=== PATIENT | male | born 1980 | race Caucasian/White ===

== ENCOUNTER 2017-03-25 13:20 | Emergency (ER) | payer OTHER ==
[~2017-03-25] VITALS: Ht 182.9 cm; Wt 140.9 kg
[~2017-03-25 13:20] MED LIST: IBUP-232 PO
[2017-03-25 13:26] VITALS: BP 132/93; PULSE 82; RESP 20; TEMP 98.3; O2SAT 96
[2017-03-25] MEDS ORDERED: ROBA750T PO (14:34)
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
[2017-03-25] MEDS ORDERED: KETOROLAC TROMETHAMINE 60 MG/2 ML (IM) VIAL IM ONE (15:15)
== END 2017-03-25 15:13 | disposition home or self-care (01) ==
LOC: NEPK 13:20
DX: S16.1XXA Strain of muscle, fascia and tendon at neck level, initial encounter (principal); S39.012A Strain of muscle, fascia and tendon of lower back, initial encounter; V49.50XA Passenger injured in collision with unspecified motor vehicles in traffic accident, initial encounter; Z88.0 Allergy status to penicillin
CPT/HCPCS: 96372; 99284; J1885

== ENCOUNTER 2017-08-09 19:18 | Emergency (ER) | payer MEDICAID, OTHER ==
[~2017-08-09 19:18] MED LIST changes: -IBUP-232 PO; +ROBA750T PO
[2017-08-09 19:35] VITALS: BP 152/84; PULSE 82; RESP 16; TEMP 98.6; O2SAT 97
[2017-08-09] MEDS ORDERED: KETOROLAC TROMETHAMINE 60 MG/2 ML (IM) VIAL IM ONE (22:30)
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
[2017-08-09] MEDS ORDERED: IBUP1TAB7 PO (22:33)
[2017-08-09] MEDS ORDERED: BACL10TA PO (22:33)
--- NOTE | 2017-08-09 22:51 | RADRPT ---
EXAM DATE: 08/09/2017 10:48 PM EDT AGE/SEX: 37 years / Male INDICATIONS: Lower back pain. CLINICAL DATA: This is the patient's initial encounter. Patient reports that signs and symptoms have been present for 1 day and indicates a pain score of 0/10. MEDICAL/SURGICAL HISTORY: None. None. COMPARISON: No prior exams available for comparison. FINDINGS: The vertebral bodies are in normal alignment without evidence of compression deformity Bone density is normal for age. Soft tissues are grossly intact. CONCLUSION: Examination within normal limits for age. Electronically signed by: Leander Duran MD 08/09/2017 10:50 PM EDT
== END 2017-08-09 23:33 | disposition home or self-care (01) ==
LOC: NEPD 19:18
DX: S39.012A Strain of muscle, fascia and tendon of lower back, initial encounter (principal); F12.90 Cannabis use, unspecified, uncomplicated; W01.0XXA Fall on same level from slipping, tripping and stumbling without subsequent striking against object, initial encounter; Y92.009 Unspecified place in unspecified non-institutional (private) residence as the place of occurrence of the external cause
CPT/HCPCS: 72100; 96372; 99283; J1885